=== PATIENT | female | born 1985 | race Caucasian/White ===

== ENCOUNTER 2022-08-09 06:43 | Day surgery (SDC) | payer OTHER, BC ==
[~2022-08-09] VITALS: Ht 170.2 cm; Wt 68.8 kg
[~2022-08-09 06:43] MED LIST: FERROUS SULFAT325 M3 PO; KYLEENA IY; OMEP20ER PO; TESTOSTERONE SL
[2022-08-09] MEDS ORDERED: ERGO400 (06:57)
[2022-08-09] MEDS ORDERED: Vitamin B-12100 MCG (06:57)
== END 2022-08-09 08:54 | disposition home or self-care (01) ==
LOC: ORSCSDS 06:43
PROVIDERS: Student in an Organized Health Care Education/Training Program
PROC: 0DB68ZX Excision of Stomach, Via Natural or Artificial Opening Endoscopic, Diagnostic (ICD-10-PCS; principal; 2022-08-09 08:00)
PROC: 0DB58ZX Excision of Esophagus, Via Natural or Artificial Opening Endoscopic, Diagnostic (ICD-10-PCS; principal; 2022-08-09 08:00)
DX: R13.10 Dysphagia, unspecified (principal); K21.9 Gastro-esophageal reflux disease without esophagitis; K44.9 Diaphragmatic hernia without obstruction or gangrene; K20.90 Esophagitis, unspecified without bleeding; D68.51 Activated protein C resistance; Z87.891 Personal history of nicotine dependence; K29.70 Gastritis, unspecified, without bleeding; Z79.899 Other long term (current) drug therapy
CPT/HCPCS: 88305; 88342; J2250; J2704; J7120

== ENCOUNTER → 2023-07-04 | Outpatient (CLI) | payer OTHER, BC ==
[~2023-07-04] MED LIST changes: +ERGO400; +Vitamin B-12100 MCG
== END ==
LOC: LAB SHORT 14:35 → LAB 14:35
PROVIDERS: Physician Assistant Medical
DX: R19.5 Other fecal abnormalities (principal)
CPT/HCPCS: 82653; 83993

== ENCOUNTER 2024-04-09 06:50 | Day surgery (SDC) | payer OTHER, BC ==
[~2024-04-09] VITALS: Ht 170.2 cm; Wt 65.1 kg
[~2024-04-09 06:50] MED LIST changes: +PROG100 PO
[2024-04-09] MEDS ORDERED: propofoL 50 ML IV ONE ×2 (07:32→08:47)
[2024-04-09] MEDS ORDERED: Lactated Ringer's 1,000 ML IV ONE ×2 (07:32→07:45)
[2024-04-09 09:11] VITALS: BP 111/82
== END 2024-04-09 09:12 | disposition home or self-care (01) ==
LOC: ORSCSDS 06:50
PROVIDERS: Specialist
PROC: 0DB58ZX Excision of Esophagus, Via Natural or Artificial Opening Endoscopic, Diagnostic (ICD-10-PCS; principal; 2024-04-09 08:00)
PROC: 0DB68ZX Excision of Stomach, Via Natural or Artificial Opening Endoscopic, Diagnostic (ICD-10-PCS; principal; 2024-04-09 08:00)
PROC: 0DBN8ZX Excision of Sigmoid Colon, Via Natural or Artificial Opening Endoscopic, Diagnostic (ICD-10-PCS; principal; 2024-04-09 08:00)
PROC: 0DB98ZX Excision of Duodenum, Via Natural or Artificial Opening Endoscopic, Diagnostic (ICD-10-PCS; principal; 2024-04-09 08:00)
DX: R19.4 Change in bowel habit (principal); K29.50 Unspecified chronic gastritis without bleeding; K44.9 Diaphragmatic hernia without obstruction or gangrene; K21.00 Gastro-esophageal reflux disease with esophagitis, without bleeding; D12.5 Benign neoplasm of sigmoid colon; K64.4 Residual hemorrhoidal skin tags; K64.8 Other hemorrhoids; K57.30 Diverticulosis of large intestine without perforation or abscess without bleeding; K86.89 Other specified diseases of pancreas; D68.51 Activated protein C resistance; Z79.899 Other long term (current) drug therapy
CPT/HCPCS: 88305; 88342; J2704; J7120

== ENCOUNTER → 2025-05-20 | Outpatient (CLI) | payer BC ==
[~2025-05-20] MED LIST changes: +ZOLOFT25 MG PO
[2025-05-20 18:13] LABS: Sodium, Urine 69.0 mmol/L (20-110); Uric Acid, Urine 44.4 mg/dL (7.5-49.5)
[2025-05-20 18:19] LABS: Calcium, Urine 18.5 mg/dL (< 17.5); Calcium, Urine Calculation 277.5 mg/24hrs (42.0-353.0); Phosphorus, Urine 62.1 mg/dL (20.0-60.0)
== END ==
LOC: LAB 04:30 → LAB SHORT 04:30
PROVIDERS: Urology
DX: N20.1 Calculus of ureter (principal)
CPT/HCPCS: 81050; 82340; 82507; 83735; 83945; 84105; 84300; 84560